=== PATIENT | female | born 1970 | race African-American/Black ===

== ENCOUNTER 2024-01-30 19:26 | Emergency (ER) | payer BC ==
[2024-01-30 19:44] VITALS: TEMP 98.5; BMI 28.3
[2024-01-30] MEDS ORDERED: ACETAMINOPHEN INJECTION 100 ML IVPB ONE (20:31)
[2024-01-30 20:40] LABS: BASO % 0.8 % (0-2.0); EOS % 2.5 % (0-4.5); HEMATOCRIT 36.8 % (32.4-45.2); HEMOGLOBIN 11.8 GM/dL (10.7-15.3); LYMPH % 34.2 % (8-40); MCH 25.7 pg (25.7-33.7); MEAN CELL VOLUME 80.4 fl (80-96); MEAN PLT VOLUME 8.5 fl (7.5-11.1); MONO % 10.1 % (3.8-10.2); NEUT % 52.4 % (42.8-82.8); PLATELET COUNT 261 10^3/uL (134-434); RBC 4.58 M/mm3 (3.60-5.2); RDW 13.7 % (11.6-15.6); WHITE BLOOD COUNT 4.3 K/mm3 (4.0-10.0)
[2024-01-30 20:46] VITALS: BP 147/82; PULSE 89; RESP 18
[2024-01-30] MEDS: ACETAMINOPHEN 1000 MG/100 ML BAG IVPB ONE (20:46)
[2024-01-30 20:54] LABS: INR 1.07 (0.83-1.09); PROTHROMBIN TIME (PATIENT) 12.3 SEC (9.7-13.0)
[2024-01-30 20:57] LABS: ACTIVATED PTT 33.5 SECONDS (25.2-36.5)
[2024-01-30 21:07] LABS: POTASSIUM 4.8 mmol/L (3.5-5.1)
[2024-01-30 21:09] LABS: CALCIUM 9.4 mg/dL (8.5-10.1)
[2024-01-30 21:10] LABS: ALBUMIN 4.1 g/dl (3.4-5.0); BLOOD UREA NITROGEN 14.8 mg/dL (7-18)
[2024-01-30 21:12] LABS: CREATININE 0.9 mg/dL (0.55-1.3)
[2024-01-30 21:14] LABS: TOT PROT 7.6 g/dl (6.4-8.2)
== END 2024-01-30 23:30 | disposition home or self-care (01) ==
LOC: JER 19:26
PROC: 3E033NZ Introduction of Analgesics, Hypnotics, Sedatives into Peripheral Vein, Percutaneous Approach (ICD-10-PCS; principal; 2024-01-30)
DX: R07.89 Other chest pain (principal); Z20.822 Contact with and (suspected) exposure to COVID-19
CPT/HCPCS: 0241U-QW; 36415; 71046-TC-FY; 80053; 84443; 84484; 85025; 85610; 85730; 86850; 86900; 86901; 93005; 93010; 99285-25; J0131